=== PATIENT | female | born 1950 | race Asian ===

== ENCOUNTER → 2025-05-04 14:06 | Outpatient (REF) | payer OTHER, SELFPAY | LOC: WDC 14:06 | PROVIDERS: ATTENDING PHYSICIAN Physician Assistant Medical | DX: Z12.31 Encounter for screening mammogram for malignant neoplasm of breast (principal) | CPT/HCPCS: 77063; 77067 ==

== ENCOUNTER 2025-07-15 00:53 | Inpatient (IN) | payer OTHER, SELFPAY ==
[2025-07-14 19:07] VITALS: BP 160/113
[2025-07-14 19:30] LABS: Hematocrit 38.5 % (37.0-47.0); Hemoglobin 12.9 g/dL (12.0-16.0); Mean Corp Hgb Conc. 33.5 g/dL (33.0-37.0); Mean Corpuscular Volume 92.8 fL (81.0-99.0); Nucleated Red Blood Cells % 0 %; Platelet Count 287 10^3/uL (130-400); Red Cell Dist. Width 13.9 % (11.5-14.5)
[2025-07-14 19:42] LABS: APTT 25.7 Sec (23.4-35.0); INR 0.98; PT 13.3 Sec (11.4-14.6)
[2025-07-14 19:46] LABS: ALT (SGPT) 28 U/L (0-35); AST (SGOT) 32 U/L (14-36); Albumin 4.4 g/dl (3.5-5.0); Alkaline Phosphatase 59 U/L (38-126); Blood Urea Nitrogen 17 mg/dl (7-17); Calcium 9.5 mg/dl (8.4-10.2); Carbon Dioxide 23 mmol/L (22-30); Chloride 107 mmol/L (98-107); Glucose 201 mg/dl (70-99); Potassium 4.2 mmol/L (3.5-5.1); Sodium 140 mmol/L (135-145); Total Protein 6.9 g/dl (6.3-8.2); eGFR > 60.00
[2025-07-14 20:22] VITALS: BMI 47.5
--- NOTE | 2025-07-14 20:22 | ED.GENMED ---
History of Present Illness
General
Chief Complaint: Rectal Bleeding
Source: patient and spouse
Exam Limitations: none
Time Seen by Provider: 07/14/25 20:06
Nursing documentation reviewed up to this point in time: agreed with
History of Present Illness
History of Present Illness:
Note:
CHIEF COMPLAINT(S)
Bloody stools.
HISTORY OF PRESENT ILLNESS
The patient is a 74-year-old female who presents with multiple episodes of bloody stools since 6:00 PM today. The patient reports experiencing three separate episodes of bloody stools, with the most recent episode occurring shortly before arrival at
the hospital. She has a history of an intussusception of the lower intestine. The patient expresses concern about the extent of the bleeding and is anxious about the possibility of cancer being a contributing factor.
PHYSICAL EXAM
General: Alert, no acute distress.
Skin: Warm, dry.
Head: Normocephalic, atraumatic.
Neck: Supple, trachea midline.
Eye, ears, nose, mouth, and throat: Oral mucosa moist.
Cardiovascular: Normal peripheral perfusion, No edema.
Respiratory: Respirations are non-labored.
Gastrointestinal: Abdomen non-distended. LLQ tenderness
Back: Normal range of motion, Normal alignment.
Musculoskeletal: Normal range of motion, normal strength.
Neurological: Alert and oriented to person, place, time, and situation, No focal neurological deficit observed.
Psychiatric: Cooperative, appropriate mood & affect.
PLAN
A CT scan will be performed to further investigate the cause of the bleeding and assess for any underlying conditions such as intussusception or malignancy. Blood counts will be monitored to evaluate the extent of blood loss and to rule out anemia
or other hematological conditions. The team will proceed to manage the patients bleeding and address her concerns about potential cancer following diagnostic imaging.
DIFFERENTIAL DIAGNOSIS
The Differential Diagnosis includes, in no particular order and is not limited to:
1. Intussusception
2. Colorectal cancer
3. Diverticular bleeding
4. Hemorrhoids
5. Gastrointestinal carcinoma
6. Inflammatory bowel disease (such as Crohn�s disease or ulcerative colitis)
7. Ischemic colitis
8. Angiodysplasia
9. Peptic ulcer disease
10. Rectal varices
CARE-UPDATE
07/15/25 - 00:11
CT imaging indicates diverticulitis in the distal descending colon. There is no evidence of active bleeding on CT angiography. The patient will be admitted under the care of hospitalists and treated with Zosyn.
Disposition:
SUMMARY OF ENCOUNTER
The patient, a 74-year-old female, presented to the emergency department with multiple episodes of bloody stools since 6:[address] scan and further assessment revealed diverticulitis in the distal descending colon, but no active bleeding was
observed on CT angiography. She has a history suggestive of an intussusception of the lower intestine which was considered. Given her significant symptoms and concerns, particularly regarding the potential for cancer, the decision was made to admit
her under the care of hospitalists for further management.
DISPOSITION
Admit to hospitalists.
ASSESSMENT
The patient is primarily dealing with diverticulitis as indicated by CT imaging, along with rectal bleeding.
PLAN
The patient will be admitted and managed by the hospital team to further address the diverticulitis and monitor for any changes in her condition. Treatment with piperacillin and tazobactam (Zosyn) has been initiated. Blood counts will be monitored
closely to evaluate any significant blood loss or develop anemia.
INDEPENDENT REVIEW OF LABS AND INTERPRETATION OF TESTS
My independent radiology interpretation is that CT imaging indicates diverticulitis in the distal descending colon with no evidence of active bleeding on CT angiography.
PATIENT EDUCATION AND COUNSELING
The patient was educated about diverticulitis, its potential complications, and the importance of inpatient management to further investigate potential underlying causes and ensure her safety. Reassurance was provided concerning cancer-related fears
as no evidence was found on initial assessment.
MEDICATION RECONCILIATION
The patient was administered intravenous piperacillin and tazobactam (Zosyn) as treatment.
MEDICAL DECISION MAKING
-Complexity of Data Reviewed: Chronic conditions affecting care include history of intussusception of the lower intestine. Differential diagnosis considered included diverticular bleeding, intussusception, hemorrhoids, gastrointestinal carcinoma,
inflammatory bowel disease, ischemic colitis, angiodysplasia, peptic ulcer disease, and rectal varices.
-Data:
Category 1
My independent review of CT imaging indicates diverticulitis in the distal descending colon.
Category 3
Discussion of management with a hospitalist for admitting the patient for further inpatient care due to complexity and risks associated with her condition.
-Risk:
Prescription drug management with initiation of antibiotics for diverticulitis. Escalation of care involving admission to the hospitalists was necessary for safe management of the patient�s symptoms and concerns about cancer.
DIAGNOSIS
- Diverticulitis of large intestine without perforation or abscess with bleeding (ICD-10: K57.33)
Phy Exam
Physical Exam
Physical Exam:
.
Course
Orders/Labs/Results
Orders:
Orders
07/14/25 19:14
IV Insert/Care/Rem.- Treatment PRN
Pulse Ox/spot Check [RESP] Urgent
Quantity: 1
Special Instructions: ON ROOM AIR
07/14/25 19:21
Type+Screen Urgent
Complete Blood Count/With Diff Urgent
Comprehensive Metabolic Panel Urgent
PTT Urgent
Prothrombin Time Urgent
07/14/25 20:16
Lactic Acid Urgent
07/14/25 20:19
CT Angio Abd/Pelvis w/wo IV [CT Abd/pelvis Angio W/wo Iv] Urgent
Comment:
Reason For Exam: rectal bleeding, lower abd pain
07/15/25 00:08
Piperacillin/Tazo 4.5 Gram [Zosyn] 4.5 gram in 100 ml IV NOW
Abnormal Lab Results
07/14/25 07/14/25
19:21 20:16
WBC 11.6 H 10^3/uL
(4.8-10.8)
RBC 4.15 L 10^6/uL
(4.20-5.40)
MCH 31.1 H pg
(27.0-31.0)
Abs Immat Gran (auto) 0.1 H 10^3/uL
(0-0.05)
Absolute Neuts (auto) 9.1 H 10^3/uL
(1.4-6.5)
Neutrophils % 78.2 H %
(42.2-75.2)
Lymphocytes % 14.9 L %
(20.5-51.1)
Glucose 201 H mg/dl
(70-99)
Lactic Acid 2.2 H mmol/L
(0.7-2.0)
07/14/25 19:21
07/14/25 19:21
Vital Signs
Initial and Last Documented VS:
Initial Vital Signs
Temp Pulse Resp BP Pulse Ox
98.6 F 130 20 160/113 96
07/14/25 19:07 07/14/25 19:07 07/14/25 19:07 07/14/25 19:07 07/14/25 19:07
Last Documented Vital Signs
Temp Pulse Resp BP Pulse Ox
98.6 F 95 16 164/76 94
07/14/25 19:07 07/14/25 23:30 07/14/25 23:30 07/14/25 22:00 07/14/25 23:30
*Pulse Oximetry
SaO2: 96
Oxygen Mode of Delivery: Room air
Patient hypoxic: no
*Critical Care Note
Total Time (30-74mins, 75-104mins- exclusive of procedures): Not Applicable
ED Attending Note
-
Portions of this chart may have been created with voice recognition software.� Occasional wrong word or��sound alike� substitutions may have occurred due to the inherent limitations of voice recognition software.
Discharge Plan
Departure
Patient Disposition: Admit
Date of Disposition: 07/14/25
Time of Disposition: 23:55
Admit to: Med/Surg
Presentation/result/management discussed w/ accepting MD/DO: Hospitalist
Patient with high blood pressure during this ER visit?: Yes
Condition: Fair
Discharge Problem:
Diverticulitis, Rectal bleeding
Prescriptions:
No Action
losartan 50 mg Tablet
50 mg PO DAILY
milk thistle 500 mg Capsule
1,000 mg PO BID
DHEA 50 mg Capsule
50 mg PO DAILY
vitamin B complex Tablet
1 tab PO DAILY
cinnamon bark 500 mg Capsule
1,000 mg PO DAILY
horse chestnut 300 mg Tablet
300 mg PO 1XD
Referrals:
Dane Kate MD [Family Provider, Orthopedics]
Interventions
Interventions:
*Risk Screen - Suicide Last Done: 07/14/25 19:07
*General Assessment Last Done: 07/14/25 19:07
*Neglect/Abuse Screening Last Done: 07/14/25 19:07
*ED- Fall Risk Assessment Last Done: 07/14/25 20:17
*ED COVID-19 Vaccine History Last Done: 07/14/25 20:17
*ED Influenza Vaccine History Last Done: 07/14/25 20:17
MB-Mwiudi-Ltushoipwd Assessment Last Done: 07/14/25 20:17
ED- Cardiac Assessment Last Done: 07/14/25 20:17
ED- Pulmonary Assessment Last Done: 07/14/25 20:17
Discharge Date and Time
Print Language: LIBERIAN
[2025-07-14 21:00] VITALS: BP 147/83
[2025-07-14 22:00] VITALS: BP 164/76
[2025-07-15] VITALS (11 sets, daily range): BP systolic 121–165; BP diastolic 62–118; PULSE 73–74; O2SAT 97–98; BMI 52.4
[2025-07-15] MEDS: ZOSYN 100 IV (00:14)
--- NOTE | 2025-07-15 00:42 | HPS.HSE ---
Family Physician
-
Family Physician: Dane Kate
Chief Complaint
-
Bloody stools
History of Present Illness
Patient is a 74y F with PMH significant for hypertension and diet-controlled DM-II who presents to ED complaining of bloody stools this evening. Patient states that she was feeling well when she ate dinner around 4:30 PM. She took an ASA 325mg
after dinner - as she has been doing for the past 3 months due to family history of CAD and 'blood clots'. Around 6:30PM she had a bowel movement and noted that the toilet was filled with bright, red blood. She had a second episode at home around
7PM and then presented to the ED. She has had two additional episodes here in the ED.
Patient reports some mild lightheadedness. No chest pain or dyspnea. No LOC / fall.
She denies any prior h/o GI bleeding. She denies any abdominal pain, fevers / chills, N/V.
Medical History
Past Medical History
Past Medical History: Reports Other
Additional Past Medical History:
Hypertension
Diet-Controlled DM-II
Obesity
Colon Polyps
Past Surgical History: Reports Other
Additional Past Surgical History:
Appendectomy
Ex Lap (for abdominal pain - no source found)
Right Fibroid Breast Mass Excision
Hysterectomy
Cataracts
Social History
Tobacco: Non-smoker
Alcohol: None
Drug: None
Personal:
Living: With Family
Family History
Family History: Other (CAD and 'blood clots'. Longevity in both parents.)
Allergies / Home Medications
Allergies reflects when Allergies were last updated in [facility].
Home Medications with original date entered in [facility]
Allergy/Medication List:
Allergies
Allergy/AdvReac Type Severity Reaction Status Date / Time
ciprofloxacin Allergy Hives Verified 07/14/25 19:07
indomethacin Allergy Tongue Verified 07/14/25 19:07
Swelling
Home Medications
cinnamon bark 500 mg capsule 1,000 mg PO DAILY 07/14/25
losartan 50 mg tablet 50 mg PO DAILY 07/14/25
milk thistle 500 mg capsule 1,000 mg PO BID 07/14/25
prasterone (DHEA) 50 mg capsule (DHEA) 50 mg PO DAILY 07/14/25
vitamin B complex 1 tab PO DAILY 07/14/25
horse chestnut 300 mg tablet 300 mg PO 1XD 07/15/25
Review of Systems
-
History Source: Patient
A 12 point ROS was completed and negative except as noted: Yes
Constitutional: Denies Fever or Chills
Respiratory: Denies Cough or Trouble Breathing
Cardiac: Denies Chest Pain or Palpitations
Abdomen/GI: Reports Bloody Stools; Denies Abdominal Pain, Nausea or Vomiting
: Denies Dysuria or Frequency
Musculoskeletal: Denies Joint Pain or Edema
Neurological: Reports Dizzy; Denies Headache
Psych: Denies Depression or Anxiety
Physical Exam
Vital Signs
Vital Signs
Temp Pulse Resp BP Pulse Ox
98.6 F 95 16 164/76 94
07/14/25 19:07 07/14/25 23:30 07/14/25 23:30 07/14/25 22:00 07/14/25 23:30
Physical Exam
General: Other (74y F in no acute distress.)
HEENT: Moist mucous membranes
Respiratory: Clear; No Wheezes, Rales or Rhonchi
Cardiac: S1/S2 and Regular Rhythm; No Murmur
GI: Soft, Non Distended, Normal Bowel Sounds and Other (Mild LLQ tenderness. No rebound / guarding. Pos BS.)
Musculoskeletal: No Clubbing, No Cyanosis and No Edema
Neuro: AO x 3
Laboratory Results
-
07/14/25 19:21
07/14/25 19:21
Laboratory Results
PT 13.3 Sec (11.4-14.6) 07/14/25 19:21
INR 0.98 07/14/25 19:21
APTT 25.7 Sec (23.4-35.0) 07/14/25 19:21
Lactic Acid 2.2 mmol/L (0.7-2.0) H 07/14/25 20:16
Total Bilirubin 0.5 mg/dl (0.2-1.3) 07/14/25 19:21
AST 32 U/L (14-36) 07/14/25:
ALT 28 U/L (0-35) 07/14/25 19:21
Alkaline Phosphatase 59 U/L (38-126) 07/14/25 19:21
Impression/Plan
-
A/P: Patient is a 74y F with PMH significant for hypertension and DM-II who presents to ED complaining of bloody stools.
Lower GI Bleeding
- Admit for further evaluation and treatment.
- Suspect diverticular bleeding based on history / imaging findings.
- ? mild ischemic colitis with area of stranding, mildly elevated lactate, etc.
- Hgb / vitals are stable at present.
- Discontinue ASA.
- Follow for any recurrent bleeding.
- Follow H&H and consider transfusion if needed.
- GI evaluation for additional recommendations.
Questionable Diverticulitis
- No significant prodrome of abdominal pain, fevers / chills, etc.
- Small area of stranding noted on CT.
- Very mild - if any - diverticulitis.
- Continue Zosyn for now.
- GI eval as noted above.
Benign Hypertension
- Stable. Continue losartan.
Diet-Controlled DM-II
- Stable. Follow glucose and cover with SSI as needed.
- Update A1C.
DVT Prophylaxis: SCDs
Code Status: Full
[2025-07-15] MEDS: NSS 1000 IV ×3 (01:38→20:33)
[2025-07-15] MEDS: ZOSYN 50 IV (05:20)
[2025-07-15 07:49] LABS: Hematocrit 33.4 % (37.0-47.0); Hemoglobin 10.8 g/dL (12.0-16.0); Mean Corp Hgb Conc. 32.3 g/dL (33.0-37.0); Mean Corpuscular Volume 98.8 fL (81.0-99.0); Platelet Count 295 10^3/uL (130-400); Red Cell Dist. Width 14.3 % (11.5-14.5)
[2025-07-15 08:10] LABS: Blood Urea Nitrogen 25 mg/dl (7-17); Calcium 9.3 mg/dl (8.4-10.2); Carbon Dioxide 26 mmol/L (22-30); Chloride 108 mmol/L (98-107); Estimated Creatinine Clearance 70 ml/min; Glucose 150 mg/dl (70-99); Potassium 4.0 mmol/L (3.5-5.1); Sodium 142 mmol/L (135-145); eGFR > 60.00
[2025-07-15 08:50] LABS: Glucose - Point of Care 165 mg/dl (70-99)
[2025-07-15] MEDS: NSS (PRESERVATIVE FREE) 10 ML IV (09:02)
[2025-07-15] MEDS: PROTONIX IV 40 MG IV (09:02)
[2025-07-15] MEDS: COZAAR 50 MG PO (09:02)
--- NOTE | 2025-07-15 09:26 | W.PN.HOSP.TC ---
Today's Communication/Plan
-
IV Abx
IV Benadryl PRN
Patient declined insulin coverage, will dc checks
f/w GI recommendations
CBC & BMP in AM
Assessment / Plan
Assessment / Plan
Physical Exam
General: Other (74y F in no acute distress.)
HEENT: Moist mucous membranes
Respiratory: Clear; No Wheezes, Rales or Rhonchi
Cardiac: S1/S2 and Regular Rhythm; No Murmur
GI: Soft, Non Distended, Normal Bowel Sounds and Other (Mild LLQ tenderness. No rebound / guarding. Pos BS.)
Musculoskeletal: No Clubbing, No Cyanosis and No Edema
Neuro: AO x 3
Psych: calm, no agitation
A/P:
Patient is a 74y F with PMH significant for hypertension and DM-II who presented to ED complaining of bloody stools.
Lower GI Bleeding
Acute blood loss anemia
Lactic acidosis
No recurrence so far while in hospital
Scan of the abdomen and pelvis showed colonic diverticulitis with some stranding adjacent to sigmoid colon/possibility of diverticulitis.
She was started empirically on IV Zosyn for possible diverticulitis. Patient reported that both hands felt swollen and tense for her. Change antibiotic to Rocephin. Patient requested Benadryl as she is sensitive to medication
Holding ASA.
- Follow for any recurrent bleeding.
-WBC trending down
- Follow H&H and consider transfusion if needed.
- GI evaluation for additional recommendations.
# Incidental finding of 1.4 cm left adnexal cyst
Recommend outpatient follow-up
# Cholelithiasis
# Benign Hypertension
Uncontrolled upon admission, currently well-controlled. Possible related to stress/pain
- Stable. Continue losartan.
Diet-Controlled DM-II
She reports diet controlled diabetes
Patient refused insulins like Accu-Chek. Will hold per her request.
Hemoglobin A1c 6.2
DVT Prophylaxis: SCDs
Code Status: Full
Total time spent to see the patient, examine the patient, review data and lab results, discuss treatment plan with patient, nursing staff around 55 minutes
Anticipated Discharge: > 48 hours
Subjective/Interval History
-
Date of Service: July 15, 2025
She reports less abd pain
No nausea
No chest pain
Objective Data
-
Labs:
Laboratory Results
07/15/25
07:24
WBC 11.1 H
Hgb 10.8 L
Hct 33.4 L
Plt Count 295
Sodium 142
Potassium 4.0
Chloride 108 H
Carbon Dioxide 26
BUN 25 H
Creatinine 0.7
Glucose 150 H
Calcium 9.3
Vital Signs:
Vital Signs
Temp Pulse Resp BP Pulse Ox
98.6 F 98 20 146/88 95
07/15/25 07:05 07/15/25 07:05 07/15/25 07:05 07/15/25 09:02 07/15/25 07:05
I&O
07/14/25 07/15/25 07/16/25
06:59 05:59 06:59
Intake Total 240 / 240
Balance 240 / 240
[2025-07-15] MEDS: STERILE WATER FOR INJECTION 10 ML IV (10:53)
[2025-07-15] MEDS: BENADRYL 25 MG IV (10:53)
[2025-07-15] MEDS: ROCEPHIN 1000 MG IV (10:53)
[2025-07-15 10:55] LABS: Hepatitis C Antibody Negative (Negative)
[2025-07-15 11:16] LABS: Glycohemoglobin (HgbA1c) 6.2 % (4.0-5.9)
--- NOTE | 2025-07-15 11:38 | PTCARENOTE ---
pt aaox3 and walking around in the room. pt stating this morning hands felt funny and that she was itchy post iv abx transfusion. IV benadryl ordered and administered. pt states she doesnt take any oral regimen for diabetic measures or insulins. hgb
a1c resulted at 6.2 this morning. accuchecks to be cancelled per discussion with doctor.
--- NOTE | 2025-07-15 11:53 | CM ---
I.A: Completed By KERWIN Tolbert.
Patient lives with her in a 2 Story House with 3 steps to enter, bathroom on the 1st and 2nd floor, No DME, No VN/PT, and No Inpatient Rehab.
PCP: kimberlyn Romero
[facility]- Katiana Solano
Patient has transportation home. PLAN: Anticipate Home No Needs.
--- NOTE | 2025-07-15 12:52 | CON.GI ---
Consultation
-
Date/Time Consultation Performed: 07/15/25
Performing Provider: Steve Thomas MD
Reason for Consultation: Rectal bleeding
Medical History
Chief Complaint / HPI
Chief Complaint: rectal bleeding
History of Present Illness:
The patient is a 74-year-old female past medical history as noted presents with rectal bleeding. She was in her usual state of health until yesterday when she had several episodes of rectal bleeding. She describes bright red blood, filled the
bowl, 2 at home, and 2 in the hospital the last was earlier this morning and was less volume and darker. She denies any lightheadedness or dizziness. She denies any nausea or vomiting. She has minimal left lower abdominal discomfort which is now
resolved. She is never had bleeding like this before. She denies any extraneous NSAIDs. Her last colonoscopy was around 10 years ago for follow-up of polyps which she states was okay. She denies any chest pain or shortness of breath.
Past Medical History
Past Medical History: Other (Hypertension Diet-Controlled DM-II Obesity Colon Polyps)
Past Surgical History: Other (Appendectomy Ex Lap (for abdominal pain - no source found) Right Fibroid Breast Mass Excision Hysterectomy Cataracts)
Social History
Tobacco: Non-Smoker
Alcohol: None
Family History
Family History: Reviewed & Not Pertinent
Allergies / Home Medications
Allergy/AdvReac Type Severity Reaction Status Date / Time
ciprofloxacin Allergy Hives Verified 07/14/25 19:07
indomethacin Allergy Tongue Verified 07/14/25 19:07
Swelling
�Medication �Instructions �Recorded
cinnamon bark 500 mg capsule 1,000 mg PO DAILY 07/14/25
losartan 50 mg tablet 50 mg PO DAILY 07/14/25
milk thistle 500 mg capsule 1,000 mg PO BID 07/14/25
prasterone (DHEA) 50 mg capsule 50 mg PO DAILY 07/14/25
(DHEA)
vitamin B complex 1 tab PO DAILY 07/14/25
horse chestnut 300 mg tablet 300 mg PO 1XD 07/15/25
Review of Systems
-
All other systems: A 12 pt ROS was Negative except as stated above in HPI
Vital Signs
Temp Pulse Resp BP Pulse Ox
98.6 F 98 20 146/88 95
07/15/25 07:05 07/15/25 07:05 07/15/25 07:05 07/15/25 09:02 07/15/25 07:05
Physical Exam
Exam
General: NAD
HEENT: MMM, anicteric, no lymphadenopathy
Heart: Regular, no murmurs
Lungs: CTA bilaterally
Abdomen: normal bowel sounds, soft, no tenderness, no rebound or guarding, no masses, bruits or ascites
Extremeties: no edema
Skin: no rashes
Results
WBC 11.1 10^3/uL (4.8-10.8) H 07/15/25 07:24
Hgb 10.8 g/dL (12.0-16.0) L 07/15/25 07:24
Hct 33.4 % (37.0-47.0) L 07/15/25 07:24
MCV 98.8 fL (81.0-99.0) 07/15/25 07:24
Plt Count 295 10^3/uL (130-400) 07/15/25 07:24
Absolute Neuts (auto) 9.1 10^3/uL (1.4-6.5) H 07/14/25 19:21
PT 13.3 Sec (11.4-14.6) 07/14/25 19:21
INR 0.98 07/14/25 19:21
APTT 25.7 Sec (23.4-35.0) 07/14/25 19:21
Sodium 142 mmol/L (135-145) 07/15/25 07:24
Potassium 4.0 mmol/L (3.5-5.1) 07/15/25 07:24
Chloride 108 mmol/L (98-107) H 07/15/25 07:24
Carbon Dioxide 26 mmol/L (22-30) 07/15/25 07:24
BUN 25 mg/dl (7-17) H 07/15/25 07:24
Creatinine 0.7 mg/dL (0.6-1.0) 07/15/25 07:24
Calcium 9.3 mg/dl (8.4-10.2) 07/15/25 07:24
Total Bilirubin 0.5 mg/dl (0.2-1.3) 07/14/25 19:21
AST 32 U/L (14-36) 07/14/25 19:21
ALT 28 U/L (0-35) 07/14/25 19:21
Alkaline Phosphatase 59 U/L (38-126) 07/14/25 19:21
Hepatitis C Antibody Negative (Negative) 07/15/25 07:24
Diagnostic Image Results:
CTA:
IMPRESSION:
1. No evidence of active gastrointestinal hemorrhage.
2. Colonic diverticulosis. Very mild stranding adjacent to the sigmoid colon, which may be related to diverticulitis.
3. 1.4 cm left adnexal cyst. Consider nonemergent pelvic ultrasound for further characterization.
4. Cholelithiasis.
Prior GI Procedures:
EGD:
Colonoscopy:
Assessment / Plan
-
1. GI bleed: Likely lower, likely diverticular given her history. CT angiogram was negative for active bleeding, and has remained hemodynamically stable. Her hemoglobin is slightly lower though again is overall been stable. Clinically doubt
diverticulitis given her exam though is on antibiotics for now. Other etiologies including angiectasia or malignancy, or brisk upper GI bleed seem very unlikely. At this point we will continue clear liquids for tonight and trend hemoglobin. If
continues to resolve and remains stable then likely advance tomorrow possibly discharge later tomorrow for outpatient diagnostic colonoscopy in the next couple of weeks.
-
-
Thank you for consultation and allowing me to participate in the patient's care. Please call the auction clerk GI physician during the after hours with any questions or concerns.
[2025-07-16 03:34] VITALS: BP 153/79
--- NOTE | 2025-07-16 06:08 | W.PN.GI.CBS2 ---
Today's Communication / Plan
-
Please see assessment and plan for details.
Assessment / Plan
-
1. GI bleed: Likely lower, likely diverticular given her history. CT angiogram was negative for active bleeding, and has remained hemodynamically stable. Her hemoglobin is slightly lower though again is overall been stable. Clinically doubt
diverticulitis given her exam though is on antibiotics for now. Other etiologies including angiectasia or malignancy, or brisk upper GI bleed seem very unlikely. Await morning hemoglobin, though advance to low residue diet. Given only 24 hours of
no significant bleeding would likely wait until tomorrow morning, though if remains stable would be okay to DC from a GI standpoint, plan outpatient colonoscopy in 2 to 4 weeks.
Subjective
Subjective
Date of Service: July 16, 2025
Patient feeling okay, no bowel movement since yesterday morning, no lightheadedness or dizziness, no abdominal pain.
Objective
Data Reviewed
Laboratory Data:
Laboratory Results
PT 13.3 Sec (11.4-14.6) 07/14/25 19:21
INR 0.98 07/14/25 19:21
APTT 25.7 Sec (23.4-35.0) 07/14/25 19:21
Total Bilirubin 0.5 mg/dl (0.2-1.3) 07/14/25 19:21
AST 32 U/L (14-36) 07/14/25 19:21
ALT 28 U/L (0-35) 07/14/25 19:21
Alkaline Phosphatase 59 U/L (38-126) 07/14/25 19:21
Vital Signs and I&O:
Vital Signs
Temp Pulse Resp BP Pulse Ox
98.7 F 74 18 153/79 99
07/16/25 03:34 07/16/25 03:34 07/16/25 03:34 07/16/25 03:34 07/16/25 03:34
I&O
07/14/25 07/15/25 07/16/25
06:59 05:59 06:59
Intake Total 240 / 240 2380 / 2380
Balance 240 / 240 2380 / 2380
Physical Exam
Physical Exam
General: NAD
Abdomen: normal bowel sounds, soft, no tenderness, no masses or bruits, no ascites
[2025-07-16 08:02] VITALS: BP 158/76
[2025-07-16 08:53] LABS: Hematocrit 28.9 % (37.0-47.0); Hemoglobin 9.6 g/dL (12.0-16.0); Mean Corp Hgb Conc. 33.2 g/dL (33.0-37.0); Mean Corpuscular Volume 96.0 fL (81.0-99.0); Platelet Count 247 10^3/uL (130-400); Red Cell Dist. Width 14.4 % (11.5-14.5)
[2025-07-16] MEDS: PROTONIX IV 40 MG IV (09:09)
[2025-07-16] MEDS: ROCEPHIN 1000 MG IV (09:09)
[2025-07-16] MEDS: STERILE WATER FOR INJECTION 10 ML IV (09:09)
[2025-07-16] MEDS: COZAAR 50 MG PO (09:10)
[2025-07-16] MEDS: NSS (PRESERVATIVE FREE) 10 ML IV (09:10)
[2025-07-16 09:19] LABS: Blood Urea Nitrogen 8 mg/dl (7-17); Calcium 8.9 mg/dl (8.4-10.2); Carbon Dioxide 27 mmol/L (22-30); Chloride 108 mmol/L (98-107); Estimated Creatinine Clearance 82 ml/min; Glucose 93 mg/dl (70-99); Potassium 3.6 mmol/L (3.5-5.1); Sodium 138 mmol/L (135-145); eGFR > 60.00
[2025-07-16 11:59] VITALS: BP 160/72
--- NOTE | 2025-07-16 12:16 | W.PN.HOSP.TC ---
Today's Communication/Plan
-
cont rocephin/flagyl added
LRD
trend hgb
dose of bumex
Assessment / Plan
Assessment / Plan
Physical Exam
General: Other (74y F in no acute distress.)
HEENT: Moist mucous membranes
Respiratory: Clear; No Wheezes, Rales or Rhonchi
Cardiac: S1/S2 and Regular Rhythm; No Murmur
GI: Soft, Non Distended, Normal Bowel Sounds, non tender,
Musculoskeletal: No Clubbing, No Cyanosis and mild anasarca
Neuro: AO x 3
Psych: calm, no agitation
A/P:
Patient is a 74y F with PMH significant for hypertension and DM-II who presented to ED complaining of bloody stools.
#Lower GI Bleeding
#Acute blood loss anemia
#Lactic acidosis
CT Scan of the abdomen and pelvis showed colonic diverticulitis with some stranding adjacent to sigmoid colon/possibility of diverticulitis.
She was started empirically on IV Zosyn for possible diverticulitis. Patient reported that both hands felt swollen and tense for her. Change antibiotic to Rocephin. Agreed for Flagyl.
Holding ASA.
Follow for any recurrent bleeding.
WBC trended down. Diet advanced to LRD.
Follow H&H and consider transfusion if needed.
GI following-monitor overnight.
#Mild anasarca
dose of bumex x 1.
# Incidental finding of 1.4 cm left adnexal cyst
Recommend outpatient follow-up
# Cholelithiasis
# Benign Hypertension
- Continue losartan.
Diet-Controlled DM-II
She reports diet controlled diabetes
Patient refused insulins like Accu-Chek. Will hold per her request.
Hemoglobin A1c 6.2
DVT Prophylaxis: SCDs
Code Status: Full
Anticipated Discharge: Within 24 hours
Subjective/Interval History
-
Date of Service: July 16, 2025
no bm since yesterday
states of severe swelling throughout due to IVF
no abd pain or nausea or vomiting
Objective Data
-
Labs:
Laboratory Results
07/16/25
08:28
WBC 8.9
Hgb 9.6 L
Hct 28.9 L
Plt Count 247
Sodium 138
Potassium 3.6
Chloride 108 H
Carbon Dioxide 27
BUN 8
Creatinine 0.6
Glucose 93
Calcium 8.9
Vital Signs:
Vital Signs
Temp Pulse Resp BP Pulse Ox
98.9 F 80 18 160/72 97
07/16/25 11:59 07/16/25 11:59 07/16/25 11:59 07/16/25 11:59 07/16/25 11:59
I&O
07/15/25 07/16/25 07/17/25
05:59 06:59 06:59
Intake Total 240 / 240 2900 / 2900 800 / 800
Balance 240 / 240 2900 / 2900 800 / 800
Data Reviewed
-
Total Time Spent with Patient (in minutes): 55
[2025-07-16] MEDS: BUMEX 0.5 MG PO (12:21)
[2025-07-16 13:04] LABS: Magnesium 1.8 mg/dl (1.6-2.3)
[2025-07-16] MEDS: HYDROCORTISONE 1% CREAM 1 APPLIC TOPICAL ×2 (13:14→20:28)
--- NOTE | 2025-07-16 14:21 | CM ---
Rectal bleed. Monitoring Hemoglobin. IV/Rocephin, PO Flagyl added. Discharge POC: Anticipate Home with no needs.
[2025-07-16] MEDS: FLAGYL 500 MG PO ×2 (15:54→23:59)
[2025-07-16 15:57] VITALS: BP 165/84
--- NOTE | 2025-07-16 18:34 | PTCARENOTE ---
Patient c/o numbness and tingling in B/L hands this AM, states started after IV Zosyn administration yesterday, patient also c/o increased swelling in all extremities, +1 LE and +1 B/L hand edema noted on assessment by this RN. Patient stated to
this RN she occasionally takes PO Bumex at home for increased swelling. MD made aware on rounds this AM, one time dose of PO Bumex ordered, patient reports to this RN improvement in symptoms throughout shift s/p PO Bumex administration.
BP elevated 150s-160s systolic throughout shift, most recently 165/84 RUE for 1500 vitals HR NSR on monitor. Patient ambulatory in room throughout shift stating no complaints, tolerating low res diet and +BM brown loose in bathroom this evening.
aware of BP results, no new orders at this time.
[2025-07-16 19:30] VITALS: BP 140/67
[2025-07-16 23:42] VITALS: BP 137/64
[2025-07-17 03:50] VITALS: BP 138/72
[2025-07-17 05:13] VITALS: BMI 51.2
[2025-07-17 06:56] LABS: Hematocrit 29.1 % (37.0-47.0); Hemoglobin 9.6 g/dL (12.0-16.0); Mean Corp Hgb Conc. 33.0 g/dL (33.0-37.0); Mean Corpuscular Volume 94.5 fL (81.0-99.0); Nucleated Red Blood Cells % 0 %; Platelet Count 260 10^3/uL (130-400); Red Cell Dist. Width 14.3 % (11.5-14.5)
[2025-07-17 07:00] VITALS: BP 145/68
[2025-07-17 07:02] LABS: Blood Urea Nitrogen 10 mg/dl (7-17); Calcium 9.0 mg/dl (8.4-10.2); Carbon Dioxide 29 mmol/L (22-30); Chloride 104 mmol/L (98-107); Estimated Creatinine Clearance 81 ml/min; Glucose 117 mg/dl (70-99); Magnesium 1.9 mg/dl (1.6-2.3); Potassium 3.5 mmol/L (3.5-5.1); Sodium 141 mmol/L (135-145); eGFR > 60.00
[2025-07-17] MEDS: PROTONIX IV 40 MG IV (08:54)
[2025-07-17] MEDS: FLAGYL 500 MG PO (08:54)
[2025-07-17] MEDS: COZAAR 50 MG PO (08:54)
[2025-07-17] MEDS: HYDROCORTISONE 1% CREAM 1 APPLIC TOPICAL (08:55)
[2025-07-17] MEDS: NSS (PRESERVATIVE FREE) 10 ML IV (08:55)
--- NOTE | 2025-07-17 09:56 | W.PN.GI.CBS2 ---
Today's Communication / Plan
-
likely diverticular bleed now resolved
stools now brown
hbg stable 9.6
cont abx per medical team
low residue diet x 2 weeks then slowly advance
monitor for any rebleeding
avoid constipation
I sent message to arrange OP follow up to discuss colonoscopy
discussed to return if any recurrent bleeding or problems
stable from GI for discharge
Assessment / Plan
-
Pt is a 74yo with past medical history DM, obesity, colon polyp, HTN, appe, ex lap for abdominal pain, fibroid breast mass presents with rectal bleeding. CT angio on admission with no GI hemmohage diverticulosis, may be mild diverticulitis, adenxal
cyst, cholelithiasis. She denies any extraneous NSAIDs. Her last colonoscopy was around 10 years ago for follow-up of polyps which she states was okay.
- GI bleed: Likely lower, likely diverticular given her history.
-Ct with possible diverticulitis
-lactic acidosis on admission
-adnexal cyst
PLAN:
likely diverticular bleed now resolved
stools now brown
hbg stable 9.6
cont abx per medical team
low residue diet x 2 weeks then slowly advance
monitor for any rebleeding
avoid constipation
I sent message to arrange OP follow up to discuss colonoscopy
discussed to return if any recurrent bleeding or problems
stable from GI for discharge
Subjective
Subjective
Date of Service: July 17, 2025
07/17 brown stool on low residue diet
Objective
Data Reviewed
Laboratory Data:
Laboratory Results
07/17/25 06:02
07/17/25 06:02
Laboratory Results
PT 13.3 Sec (11.4-14.6) 07/14/25 19:21
INR 0.98 07/14/25 19:21
APTT 25.7 Sec (23.4-35.0) 07/14/25 19:21
Phosphorus 3.3 mg/dl (2.5-4.5) 07/17/25 06:02
Magnesium 1.9 mg/dl (1.6-2.3) 07/17/25 06:02
Total Bilirubin 0.5 mg/dl (0.2-1.3) 07/14/25 19:21
AST 32 U/L (14-36) 07/14/25 19:21
ALT 28 U/L (0-35) 07/14/25 19:21
Alkaline Phosphatase 59 U/L (38-126) 07/14/25 19:21
Vital Signs and I&O:
Vital Signs
Temp Pulse Resp BP Pulse Ox
98 F 58 20 145/68 97
07/17/25 07:00 07/17/25 07:00 07/17/25 07:00 07/17/25 08:54 07/17/25 07:00
I&O
07/16/25 07/17/25 07/18/25
06:59 06:59 06:59
Intake Total 2900 / 2900 1760 / 1760
Balance 2900 / 2900 1760 / 1760
Physical Exam
Physical Exam
HEENT: Anicteric and Moist mucous membranes
Cardiology: Normal Sinus Rhythm
Pulmonary: Clear
GI: Soft, Non Distended and Non Tender
Extremities: No Edema
Neuro: Non Focal
[2025-07-17] MEDS: STERILE WATER FOR INJECTION 10 ML IV (11:05)
[2025-07-17] MEDS: ROCEPHIN 1000 MG IV (11:05)
--- NOTE | 2025-07-17 11:55 | W.PN.HOSP.TC ---
Today's Communication/Plan
-
po abx
OP gi f/u
Assessment / Plan
Assessment / Plan
Physical Exam
General: Other (74y F in no acute distress.)
HEENT: Moist mucous membranes
Respiratory: Clear; No Wheezes, Rales or Rhonchi
Cardiac: S1/S2 and Regular Rhythm; No Murmur
GI: Soft, Non Distended, Normal Bowel Sounds, non tender,
Musculoskeletal: No Clubbing, No Cyanosis and no swelling noted today
Neuro: AO x 3
Psych: calm, no agitation
A/P:
Patient is a 74y F with PMH significant for hypertension and DM-II who presented to ED complaining of bloody stools.
#Lower GI Bleeding
#Acute blood loss anemia
#Lactic acidosis
CT Scan of the abdomen and pelvis showed colonic diverticulitis with some stranding adjacent to sigmoid colon/possibility of diverticulitis.
She was started empirically on IV Zosyn for possible diverticulitis. Patient reported that both hands felt swollen and tense for her. Change antibiotic to Rocephin. Agreed for Flagyl.
Restart aspirin.
Follow for any recurrent bleeding. Hemoglobin remained stable.
WBC trended down. Diet advanced to LRD.
Follow H&H and consider transfusion if needed.
GI following-okay for discharge.
#Mild anasarca
dose of bumex x 1. Significant improvement.
# Incidental finding of 1.4 cm left adnexal cyst
Recommend outpatient follow-up
# Cholelithiasis
# Benign Hypertension
- Continue losartan.
Diet-Controlled DM-II
She reports diet controlled diabetes
Patient refused insulins like Accu-Chek. Will hold per her request.
Hemoglobin A1c 6.2
DVT Prophylaxis: SCDs
Code Status: Full
More than 30 minutes spent in discharge including
Final examination of the patient
Summarizing hospital stay
Instructions for continuing care to all relevant caregivers
Preparation of discharge records, prescriptions, and referral forms
Total time spent (in minutes): 55
Anticipated Discharge: Today
Subjective/Interval History
-
Date of Service: July 17, 2025
states the swelling has improved significantly
Tolerating diet. No abdominal discomfort.
Objective Data
-
Labs:
Laboratory Results
07/17/25
06:02
WBC 9.3
Hgb 9.6 L
Hct 29.1 L
Plt Count 260
Sodium 141
Potassium 3.5
Chloride 104
Carbon Dioxide 29
BUN 10
Creatinine 0.6
Glucose 117 H
Calcium 9.0
Vital Signs:
Vital Signs
Temp Pulse Resp BP Pulse Ox
98 F 58 20 145/68 97
07/17/25 07:00 07/17/25 07:00 07/17/25 07:00 07/17/25 08:54 07/17/25 07:00
I&O
07/16/25 07/17/25 07/18/25
06:59 06:59 06:59
Intake Total 2900 / 2900 1760 / 1760
Balance 2900 / 2900 1760 / 1760
--- NOTE | 2025-07-17 12:03 | W.DCSUMMARY ---
Discharge Summary
Discharge Data
Date of Admission: 07/15/25
Date of Discharge: 07/17/25
-
Pending Results: No
Hospital Course
74y F with PMH significant for hypertension and DM-II who presented to ED complaining of bloody stools. CT Scan of the abdomen and pelvis showed colonic diverticulitis with some stranding adjacent to sigmoid colon/possibility of diverticulitis.
Patient hemoglobin was trended. Patient was started on IV antibiotics. Patient with mild swelling due to Zosyn and she prefer antibiotic to be switched. Patient was tolerating Rocephin and Flagyl which was transitioned to p.o. antibiotics regimen
at discharge. Patient hemoglobin stabilized. Diet was advanced which she was tolerating. Patient also with severe anasarca and received 1 dose of Bumex. Patient without any further abdominal complaints. Patient was tolerating diet. Patient
hemoglobin stable. Patient to follow-up outpatient with gastroenterology.
Discharge Plan
-
Patient Disposition: Home (Routine Discharge)
Discharge Diagnosis/Procedures: Lower gastrointestinal bleeding
Mild acute blood loss anemia
Lactic acidosis
Diverticulitis
Incidental finding of 1.4 cm left adnexal cyst
Diet: Low Residue
Additional Diets: low residue x 2 weeks then slowly advance diet
Activity: As tolerated
Driving Restrictions: As prior to admission
Blood Work: cbc in 7-10 days via primary doctor.
Others Tests: 1.4 cm left adnexal cyst incidental finding noted on CT abdomen pelvis. Consider nonemergent pelvic ultrasound for further characterization via primary doctor.
return to ER for any recurrent bleeding or problems
Instructions: Diverticulitis (DC)
Referrals:
Elijah Thomas MD [Active, Gastroenterology] - in one to two months
Edda Kate CRNP [Family Provider, Family Practice] - in less than 1 week
Prescriptions:
New
metronidazole 500 mg Tablet
500 mg PO Q8 6 Days Qty: 18 0RF
cefdinir 300 mg capsule
300 mg PO BID 5 Days Qty: 10 0RF
Continued
losartan 50 mg Tablet
50 mg PO DAILY
milk thistle 500 mg Capsule
1,000 mg PO BID
DHEA 50 mg Capsule
50 mg PO DAILY
vitamin B complex Tablet
1 tab PO DAILY
cinnamon bark 500 mg Capsule
1,000 mg PO DAILY
horse chestnut 300 mg Tablet
300 mg PO 1XD
Discharge Orders:
Discharge Patient (As Directed); Ordered 07/17/25
Ordered By: Galdino Fried
Discharge Date and Time
Discharge Date/Time: 07/17/25 12:45
Print Language: PORTUGUESE
[2025-07-17 12:44] VITALS: BP 146/71
--- NOTE | 2025-07-17 13:01 | CM ---
Patient has been medically cleared for discharge to home with no additional skilled services. Patient has arranged for transport home.
== END 2025-07-17 12:45 | disposition home or self-care (01) | DRG 378 ==
LOC: 2 NORTH 00:53
PROVIDERS: Internal Medicine; ADMITTING PHYSICIAN Hospitalist; ATTENDING PHYSICIAN Hospitalist; CONSULT PHYSICIAN Internal Medicine Gastroenterology; EMERGENCY PHYSICIAN Emergency Medicine; FAMILY PHYSICIAN Nurse Practitioner Family
DX: K92.2 Gastrointestinal hemorrhage, unspecified (principal); E87.20 Acidosis, unspecified; K55.9 Vascular disorder of intestine, unspecified; E11.9 Type 2 diabetes mellitus without complications; I10 Essential (primary) hypertension; E66.9 Obesity, unspecified; Z86.0100 Personal history of colon polyps, unspecified; I25.10 Atherosclerotic heart disease of native coronary artery without angina pectoris; Z88.1 Allergy status to other antibiotic agents; K80.20 Calculus of gallbladder without cholecystitis without obstruction; Z82.49 Family history of ischemic heart disease and other diseases of the circulatory system; Z90.710 Acquired absence of both cervix and uterus
CPT/HCPCS: 74174; 80048; 80053; 82962; 83036; 83605; 83735; 84100; 85025; 85027; 85610; 85730; 86803; 86850; 86900; 86901; 94760; 96365; 97116; 97162; 97166; 99285; Q9967

== ENCOUNTER 2025-08-01 06:28 | Day surgery (SDC) | payer OTHER, SELFPAY | END 2025-08-01 14:02 | disposition home or self-care (01) | LOC: GI 06:28 | PROVIDERS: ATTENDING PHYSICIAN Internal Medicine Gastroenterology; FAMILY PHYSICIAN Nurse Practitioner Family | DX: K62.5 Hemorrhage of anus and rectum (principal); K57.30 Diverticulosis of large intestine without perforation or abscess without bleeding; K64.8 Other hemorrhoids; D12.0 Benign neoplasm of cecum | CPT/HCPCS: 45385; 88305 ==

== ENCOUNTER → 2025-08-10 14:56 | Outpatient (REF) | payer OTHER, SELFPAY | LOC: RAD 14:56 | PROVIDERS: ATTENDING PHYSICIAN Nurse Practitioner Family | DX: N94.9 Unspecified condition associated with female genital organs and menstrual cycle (principal) | CPT/HCPCS: 76856 ==